=== PATIENT | male | born 1970 | race Caucasian/White ===

== ENCOUNTER 2017-11-11 19:54 | Emergency (ER) | payer SELFPAY ==
[~2017-11-11] VITALS: Ht 193 cm; Wt 99.4 kg
[2017-11-11 21:45] LABS: HEMATOCRIT 31.3 % (39.0-50.0); HEMOGLOBIN 10.5 g/dl (14.0-18.0); MEAN CELL VOLUME 92.1 fL CALC (80.0-100.0); MEAN CORPUSCULAR HGB 30.9 pG CALC (26.0-32.0); MEAN CORPUSCULAR HGB CONC 33.5 g/L CALC (32.0-36.0); NEUT# 3.02 thou/uL (1.82-7.42); RED BLOOD COUNT 3.4 mill/uL (4.70-6.10); RED CELL DISTRI WIDTH 12.6 % (11.5-15.5)
[2017-11-11 21:53] LABS: INFLUENZA A NONE DETECTED (NONE DETECT); INFLUENZA B NONE DETECTED (NONE DETECT)
[2017-11-11 22:00] LABS: ANION GAP 20 (6-22 (CALC)); BUN 8 mg/dL (9-20); BUN/CREATININE RATIO 9 (12-20 (CALC)); CARBON DIOXIDE 24 mmol/l (22-30); CHLORIDE 103 mmol/l (95-108); CREATININE 0.9 mg/dL (0.7-1.3); GFR > 60 ML/MIN (>=60 (CALC)); GFR FOR AFR.AMER. > 60 ML/MIN (>=60 (CALC)); POTASSIUM 3.8 mmol/l (3.5-5.1); SODIUM 143 mmol/l (137-146)
[2017-11-11] MEDS ORDERED: CEPHALEXIN500 M1 PO (22:39)
[2017-11-11] MEDS ORDERED: BACTRIM DS1 TAB PO (22:39)
[2017-11-11 22:45] VITALS: BP 141/75
== END 2017-11-11 22:45 | disposition home or self-care (01) | DRG 603 ==
LOC: ED 19:54
PROVIDERS: Family Medicine
PROC: 0H9BXZZ Drainage of Right Upper Arm Skin, External Approach (ICD-10-PCS; principal; 2017-11-11)
DX: L02.413 Cutaneous abscess of right upper limb (principal); B95.61 Methicillin susceptible Staphylococcus aureus infection as the cause of diseases classified elsewhere; R07.9 Chest pain, unspecified